=== PATIENT | male | born 1955 | race Two or more races ===

== ENCOUNTER 2016-08-29 16:14 | Emergency (ER) | payer OTHER ==
--- NOTE | 2016-08-29 17:31 | UCPHY ---
H & P Patient Type: New Chief Complaint Nursing Narrative: rolled l foot playing golf yesterday, heard pop and has pain to lateral foot Time Seen by Provider: 08/29/16 16:48 HPI/ROS: CHIEF COMPLAINT: Left foot pain HISTORY OF PRESENT ILLNESS: Patient is a 60-year-old man who comes to the Urgent Care complaining of left foot pain. He states that he has had increasing tenderness an achiness to that lateral aspect of his left foot since he took a golf clinic 2 weeks ago. Yesterday he was golfing and inverted his foot at the end of his golf swing and heard a pop and has had continued pain since that time. He has a history of Achilles tendinitis on the same side several years ago. REVIEW OF SYSTEMS: Constitutional: denies: chills, fever, recent illness, recent injury EENTM: denies: blurred vision, double vision, nose congestion Respiratory: denies: cough, shortness of breath Cardiac: denies: chest pain, irregular heart rate, lightheadedness, palpitations Gastrointestinal/Abdominal: denies: abdominal pain, diarrhea, nausea, vomiting, blood streaked stools Genitourinary: denies: dysuria, frequency, hematuria, pain Musculoskeletal: See HPI Skin: denies: lesions, rash, jaundice, bruising Neurological: denies: headache, numbness, paresthesia, tingling, dizziness, weakness Hematologic/Lymphatic: denies: blood clots, easy bleeding, easy bruising Immunologic/allergic: denies: HIV/AIDS, transplant EXAM: GENERAL: Well-appearing, well-nourished and in no acute distress. HEAD: Atraumatic, normocephalic. EYES: Pupils equal round and reactive to light, extraocular movements intact, sclera anicteric, conjunctiva are normal. ENT: TMs normal, nares patent, oropharynx clear without exudates. Moist mucous membranes. NECK: Normal range of motion, supple without lymphadenopathy or JVD. LUNGS: Breath sounds clear to auscultation bilaterally and equal. No wheezes rales or rhonchi. HEART: Regular rate and rhythm without murmurs, rubs or gallops. ABDOMEN: Soft, nontender, normoactive bowel sounds. No guarding, no rebound. No masses appreciated. BACK: No CVA tenderness, no spinal tenderness, step-offs or deformities EXTREMITIES: No tenderness or swelling to foot, no erythema, no obvious deformity. Pain to the lateral aspect NEUROLOGICAL: Cranial nerves II through XII grossly intact. Normal speech, normal gait. 5/5 strength, normal movement in all extremities, normal sensation PSYCH: Normal mood, normal affect. SKIN: Warm, dry, normal turgor, no visible rashes or lesions. Source: Patient Exam Limitations: No limitations - Medical/Surgical History Hx Asthma: No Hx Chronic Respiratory Disease: No Hx Diabetes: No Hx Cardiac Disease: No Hx Renal Disease: No Hx Cirrhosis: No Hx Alcoholism: No Hx HIV/AIDS: No Other PMH: htn - Family History Significant Family History: No pertinent family hx - Social History Smoking Status: Never smoked Constitutional: Initial Vital Signs Temperature (C) 36.5 C 08/29/16 16:23 Heart Rate 65 08/29/16 16:23 Respiratory Rate 15 08/29/16 16:23 Blood Pressure 124/87 H 08/29/16 16:23 O2 Sat (%) 93 08/29/16 16:23 O2 Delivery Mode Room Air Allergies/Adverse Reactions: codeine Allergy (Verified 08/29/16 16:22) Home Medications: Medication Instructions Recorded Mary Allergy 08/29/16 Hydrochlorothiazide 08/29/16 Losartan Potassium 08/29/16 Medical Decision Making - Diagnostics Imaging Results: Imaging Impressions Foot X-Ray 08/29/16 16:26 Impression: 1. No acute fracture. 2. Chronic Achilles tendinopathy. Imaging: I viewed and interpreted images myself ED Course/Re-evaluation: The patient does not have any obvious fracture or injury on exam or x-ray. He likely has a tendinitis of a partial tear. He is still has normal function and movement and sensation in his foot and toes. I encouraged anti-inflammatories and rest and will brace for a couple of days. Also ice and follow up with Podiatry. He understands and agrees with this plan. Declines further workup or testing at this time. Differential Diagnosis: Partial list of the Differential diagnosis considered include but were not limited to; tendinitis, tendon rupture, fracture and although unlikely based on the history and physical exam, I also considered dislocation, infection, gout. I discussed these differential diagnoses and the plan with the patient as well as the usual and expected course. The patient understands that the diagnosis is provisional and that in medicine we are not always correct and that further workup is often warranted. Usual and customary warnings were given. All of the patient's questions were answered. The patient was instructed to return to the emergency department should the symptoms at all worsen or return, otherwise to followup with the physician as we discussed. Departure - Departure Disposition: Home, Routine, Self-Care Clinical Impression: Tendinitis Condition: Fair Instructions: Tendinitis (ED) Referrals: Leticia Roberto MD [Primary Care Provider] - As per Instructions Dano Montero DPM [Doctor of Podiatric Medicine] - As per Instructions - PQRS PQRS Measurement: Not applicable
[2016-08-29 17:53] VITALS: BP 128/86; PULSE 77; RESP 18; TEMP 98.2; O2SAT 96
== END 2016-08-29 17:51 | disposition home or self-care (01) ==
LOC: CED 16:14
DX: M76.62 Achilles tendinitis, left leg (principal)
CPT/HCPCS: 73630-PO; G0463-PO; L4386

== ENCOUNTER 2017-04-07 08:59 | Emergency (ER) | payer OTHER ==
[2017-04-07 09:13] VITALS: BP 174/113; PULSE 84; RESP 20; TEMP 98.2; O2SAT 92
--- NOTE | 2017-04-07 09:23 | EDPHY ---
H & P Stated Complaint: sinus pain and pressure for one week, had cold symptoms the week before Time Seen by Provider: 04/07/17 09:17 HPI/ROS: CHIEF COMPLAINT: Sinus congestion HISTORY OF PRESENT ILLNESS: The patient is a 61-year-old otherwise healthy man who comes to the emergency department complaining of sinus pain and congestion for the last week. He states that the week before that he had a cold but it seemed to improve and he thought he was getting better until the congestion developed. He has not had a fever. He has had mild dental pain. He has a frontal headache. No vision changes. No confusion or altered mental status. No neck pain. No chest pain. He does have a nonproductive cough which she thinks is from postnasal drip. REVIEW OF SYSTEMS: Constitutional: See HPI EENTM: See HPI Respiratory: See HPI Cardiac: denies: chest pain, irregular heart rate, lightheadedness, palpitations Gastrointestinal/Abdominal: denies: abdominal pain, diarrhea, nausea, vomiting, blood streaked stools Genitourinary: denies: dysuria, frequency, hematuria, pain Musculoskeletal: denies: joint pain, muscle pain Skin: denies: lesions, rash, jaundice, bruising Neurological: denies: headache, numbness, paresthesia, tingling, dizziness, weakness Hematologic/Lymphatic: denies: blood clots, easy bleeding, easy bruising Immunologic/allergic: denies: HIV/AIDS, transplant EXAM: GENERAL: Well-appearing, well-nourished and in no acute distress. HEAD: Atraumatic, normocephalic. EYES: Pupils equal round and reactive to light, extraocular movements intact, sclera anicteric, conjunctiva are normal. ENT: TMs normal large amounts of cerumen, nares patent, maxillary and frontal sinuses tender, oropharynx clear without exudates. Moist mucous membranes. NECK: Normal range of motion, supple without lymphadenopathy or JVD. LUNGS: Breath sounds clear to auscultation bilaterally and equal. No wheezes rales or rhonchi. HEART: Regular rate and rhythm without murmurs, rubs or gallops. ABDOMEN: Soft, nontender, normoactive bowel sounds. No guarding, no rebound. No masses appreciated. BACK: No CVA tenderness, no spinal tenderness, step-offs or deformities EXTREMITIES: Normal range of motion, no pitting or edema. No clubbing or cyanosis. NEUROLOGICAL: Cranial nerves II through XII grossly intact. Normal speech, normal gait. 5/5 strength, normal movement in all extremities, normal sensation PSYCH: Normal mood, normal affect. SKIN: Warm, dry, normal turgor, no visible rashes or lesions. Source: Patient Exam Limitations: No limitations - Personal History Current Tetanus/Diphtheria Vaccine: Yes Current Tetanus Diphtheria and Acellular Pertussis (TDAP): Yes Tetanus Vaccine Date: < 10 years - Medical/Surgical History Hx Asthma: No Hx Chronic Respiratory Disease: No Hx Diabetes: No Hx Cardiac Disease: Yes Hx Renal Disease: No Hx Cirrhosis: No Hx Alcoholism: No Hx HIV/AIDS: No Other PMH: htn - Family History Significant Family History: No pertinent family hx - Social History Smoking Status: Never smoked Alcohol Use: Sober Drug Use: None Constitutional: Initial Vital Signs Temperature (C) 36.8 C 04/07/17 09:10 Heart Rate 84 04/07/17 09:10 Respiratory Rate 20 04/07/17 09:10 Blood Pressure 174/113 H 04/07/17 09:10 O2 Sat (%) 92 04/07/17 09:10 O2 Delivery Mode Room Air Allergies/Adverse Reactions: codeine Allergy (Verified 04/07/17 09:10) Home Medications: Medication Instructions Recorded Losartan Potassium 08/29/16 AZITHROMYCIN [Z-PACK] 250 mg PO DAILY #6 tab 04/07/17 amLODIPine BESYLATE 04/07/17 Medical Decision Making ED Course/Re-evaluation: Patient's symptoms are consistent with sinusitis. I will start him on azithromycin. He is happy with this plan. We also discussed decongestants. After for would be a better choice because of his history of hypertension. Differential Diagnosis: Partial list of the Differential diagnosis considered include but were not limited to; sinusitis, upper respiratory tract infection and although unlikely based on the history and physical exam, I also considered pneumonia, bronchitis , meningitis, sepsis, mass. I discussed these differential diagnoses and the plan with the patient as well as the usual and expected course. The patient understands that the diagnosis is provisional and that in medicine we are not always correct and that further workup is often warranted. Usual and customary warnings were given. All of the patient's questions were answered. The patient was instructed to return to the emergency department should the symptoms at all worsen or return, otherwise to followup with the physician as we discussed. Departure - Departure Disposition: Home, Routine, Self-Care Clinical Impression: Sinusitis Qualifiers: Sinusitis location: frontal Chronicity: acute Recurrence: non-recurrent Qualified Code(s): J01.10 - Acute frontal sinusitis, unspecified Condition: Fair Instructions: Sinusitis (ED) Referrals: Leticia Roberto MD [Primary Care Provider] - As per Instructions Prescriptions: AZITHROMYCIN [Z-PACK] 250 mg PO DAILY #6 tab
== END 2017-04-07 09:35 | disposition home or self-care (01) ==
LOC: CED 08:59
DX: J01.10 Acute frontal sinusitis, unspecified (principal); I10 Essential (primary) hypertension